=== PATIENT | female | born 1965 | race Caucasian/White ===

== ENCOUNTER → 2016-09-21 | Outpatient (CLI) | payer OTHER ==
[~2016-09-21] MED LIST: /ADVA50050 INH; /LORA10TA OR; /PRAV20TA PO; ABIL2TAB OR; ABIL5TAB; ABIL5TAB OR; ACET500C OR; ADDE20CA PO; ARTIDRO OP; ATEN25TA PO; ATOM40CA PO; AZEL0.05 TOP; BACL10TA2 OR; BENA25CA2 PO; BUPR15TA OR; CELE100C; CHLO500TA OR; DRIS1CAP PO; FLEXERIL; FLEXERIL OR; FLEXERIL PO; FLON0.054; IBUP200C PO; LIPI10TA; LIPI20TA PO; LORA0.5T PO; LYRI200C; LYRI75CA OR; LYRI75CA PO; MULTCAP PO; MUPI2OI TOP; NAPR500T OR; NEUR300C; NEUR300C OR; NICO21DI5 TD; OMEP40CA2 PO; PREG100CA; ROXI1TAB2 PO; TIZA4CAP3 PO; TIZA4TAB3 PO; TRAM50TA2; TRAM50TA2 OR; TRAZ100T; TRAZ100T2 PO; TRAZ50TA OR; TYLE167L PO; TYLE650T25 PO; TYLENOL #3 OR; ULTRTA OR; VICO5TAB OR; VOLT1GEL EX; VOLT1GEL TOP; WELL100T; WELLTAB PO; XARE20TA PO; [UNRECOGNIZED DRUG - CODE] PO; albuterol HFA INH; cymbalta PO; hydroxyzine OR; spiriva INH; vitamin d2 PO
--- NOTE | 2016-09-21 13:05 | REP ---
MRI BRAIN WITHOUT CONTRAST: HISTORY: Memory loss. COMPARISON: CT 12/09/2015. Several punctate areas of increased signal intensity on T2-weighted images are present in the subcortical white matter. This represents small vessel ischemic disease. There is no intraparenchymal hemorrhage, infarct, mass or midline shift. The ventricular system is normal in appearance. There is no extracerebral collection. The sinuses are clear. IMPRESSION: Minimal small vessel ischemic disease. Signed by Brian Campoverde MD 09/21/2016 01:11 P
== END ==
LOC: M RAD 10:56
PROVIDERS: ATTEND Physician Assistant Medical
DX: R41.3 Other amnesia (principal); I73.9 Peripheral vascular disease, unspecified

== ENCOUNTER → 2017-03-07 | Outpatient (REF) | payer OTHER ==
[~2017-03-07] MED LIST changes: -IBUP200C PO; +IBUP200C10 PO
== END ==
LOC: M LAB REF 16:57
PROVIDERS: ATTEND Physician Assistant Medical
DX: L30.9 Dermatitis, unspecified (principal)

== ENCOUNTER 2017-08-31 14:12 | Emergency (ER) | payer OTHER | END 2017-08-31 16:51 | disposition home or self-care (01) | LOC: M ED 14:12 | DX: L28.0 Lichen simplex chronicus (principal); M79.7 Fibromyalgia; R19.5 Other fecal abnormalities; I10 Essential (primary) hypertension; F41.9 Anxiety disorder, unspecified; F32.9 Major depressive disorder, single episode, unspecified; F43.10 Post-traumatic stress disorder, unspecified; Z85.528 Personal history of other malignant neoplasm of kidney; Z90.5 Acquired absence of kidney; F17.200 Nicotine dependence, unspecified, uncomplicated; Z79.899 Other long term (current) drug therapy | CPT/HCPCS: 99283 ==

== ENCOUNTER → 2017-09-06 | Outpatient (REF) | payer OTHER | LOC: M LAB REF 16:38 | DX: J02.8 Acute pharyngitis due to other specified organisms (principal) ==

== ENCOUNTER 2018-01-31 01:55 | Emergency (ER) | payer OTHER, MEDICAID, SELFPAY | END 2018-01-31 03:24 | disposition left against medical advice (07) | LOC: M ED 01:55 | DX: Z53.29 Procedure and treatment not carried out because of patient's decision for other reasons (principal) ==

== ENCOUNTER 2018-02-14 15:58 | Emergency (ER) | payer OTHER ==
[2018-02-14] MEDS: LIDOCAINE 2% MDV 20 ML VIAL SC (19:30)
[2018-02-14] MEDS: ADACEL/BOOSTRIX VACCINE (DIPHTH/PERTUSS/ACELL/TETANUS)0.5ML SYR (90715) IM (20:02)
[2018-02-14] MEDS: NORCO, ANEXSIA 5/325MG TABLET (HYDROcodone/ACETAMINOPHEN) PO (20:04)
== END 2018-02-14 20:36 | disposition home or self-care (01) ==
LOC: M ED 15:58
DX: S61.210A Laceration without foreign body of right index finger without damage to nail, initial encounter (principal); W25.XXXA Contact with sharp glass, initial encounter; Y92.098 Other place in other non-institutional residence as the place of occurrence of the external cause; H92.09 Otalgia, unspecified ear; I10 Essential (primary) hypertension; E78.5 Hyperlipidemia, unspecified; J45.909 Unspecified asthma, uncomplicated; F43.10 Post-traumatic stress disorder, unspecified; F98.8 Other specified behavioral and emotional disorders with onset usually occurring in childhood and adolescence; F60.3 Borderline personality disorder; Z90.5 Acquired absence of kidney; M79.7 Fibromyalgia; Z86.718 Personal history of other venous thrombosis and embolism; Z88.8 Allergy status to other drugs, medicaments and biological substances; F17.210 Nicotine dependence, cigarettes, uncomplicated; Z79.899 Other long term (current) drug therapy
CPT/HCPCS: 90715

== ENCOUNTER 2018-02-20 20:05 | Emergency (ER) | payer OTHER ==
[2018-02-20] MEDS: NORCO, ANEXSIA 5/325MG TABLET (HYDROcodone/ACETAMINOPHEN) PO (23:15)
== END 2018-02-21 00:14 | disposition home or self-care (01) ==
LOC: M ED 02-21 00:14
DX: Z48.02 Encounter for removal of sutures (principal); L08.9 Local infection of the skin and subcutaneous tissue, unspecified; B37.9 Candidiasis, unspecified; I10 Essential (primary) hypertension; M79.7 Fibromyalgia; Z79.899 Other long term (current) drug therapy; F17.210 Nicotine dependence, cigarettes, uncomplicated
CPT/HCPCS: 73140

== ENCOUNTER → 2018-08-08 | Outpatient (CLI) | payer OTHER ==
[~2018-08-08] MED LIST changes: +AMPH20CA PO; +CALC0.009; +CETI10TA; +DIFL150T PO; +DOXE10CA; +DOXE10CA PO; -IBUP200C10 PO; +IBUP200C25 PO; +KEFL500C17 PO; +LORA0.5T11; +NEUR300C PO; -NICO21DI5 TD; +NICO21DI6 TD; +NORCOTAB PO; +TIZA4CAP PO; -TIZA4CAP3 PO; +VENTAER
--- NOTE | 2018-08-08 18:27 | REP ---
LEFT BREAST ULTRASOUND: 08/08/2018. Clinical history: Proximally 1 week of left nipple discharge. Technologist stated that the patient informed her that it was greenish brown. Comparison: Diagnostic bilateral mammogram this date. Findings: Sonographic evaluation of the retroareolar zone of the left breast showed some dilated ducts in the retroareolar zone but none with any visible filling defects by sonography. No mass, architectural distortion, fluid collection or cyst visible. Impression: 1. Some mildly dilated ducts in the retroareolar zone of the left breast. No filling defects visible. This is best characterized as BIRADS/ACR category 2, benign ultrasound, no evidence of malignancy. None of the ducts demonstrate a filling defect. Please see mammogram report this date for final assessment and recommendation. Electronically Signed by Robin Alvarado MD 08/08/2018 07:59 P
--- NOTE | 2018-08-08 18:42 | REP ---
BILATERAL DIGITAL DIAGNOSTIC MAMMOGRAM: 08/08/2018. Comparison: Right breast ultrasound 08/08/2018, mammogram 06/15/2015. Clinical history: Scheduled as a screening examination, but the patient has had an greenish discharge for the past week from the left nipple. The for diagnostic mammogram and ultrasound. Findings: There is a moderate amount of residual fibroglandular tissue remaining which may reduce the sensitivity of mammography. Scattered lymph nodes are seen in the axilla. No dominant masses, suspicious cluster of microcalcifications or secondary signs of malignancy are seen. The 3-D total symphysis images show no additional findings. The left breast ultrasound showed some mildly dilated ducts in the retroareolar zone without filling defects in any of them. There is no cyst, solid mass or architectural distortion. Impression: 1. BIRADS 0: BI-RADS/ACR category 0 mammogram, Incomplete: Need additional imaging evaluation and/or prior mammograms for comparison. The patient describes a 1 week history of greenish discharge from the left nipple. Ultrasound identified a few dilated ducts but she did not have any discharge on compression with a mammogram. If discharge continues I would recommend she be considered for a ductogram of the left breast, but of course she has to be actively discharging for that examination to be accomplished. If the discharge was self-limited and has not recurred, and she can be followed with routine screening mammography as there was no identifiable significant finding on this study. Some mildly dilated ducts is a common normal finding in the retroareolar zone. This mammogram was interpreted with the aid of an FDA-approved computer-aided detection system. The patient states she has not had a clinical breast exam in over a year. The patient letter being requested is M0. Electronically Signed by Robin Alvarado MD 08/08/2018 08:00 P
== END ==
LOC: M RAD 13:05
PROVIDERS: ATTEND Family Medicine Addiction Medicine
DX: Z12.39 Encounter for other screening for malignant neoplasm of breast (principal); N64.52 Nipple discharge
CPT/HCPCS: 76642; 77066; G0279

== ENCOUNTER 2018-10-13 19:53 | Emergency (ER) | payer OTHER ==
[~2018-10-13] VITALS: Ht 154.9 cm; Wt 73.6 kg
[2018-10-13 19:53] VITALS: BP 140/86
[~2018-10-13 19:53] MED LIST changes: -/ADVA50050 INH; -/LORA10TA OR; -/PRAV20TA PO; +ADVA1AER2 INH; +HYDR-3715 PO; +LORA-385 OR; +MUPI1OIN2 TOP; -MUPI2OI TOP; -NORCOTAB PO; +PRAV1TAB39 PO
[2018-10-13] MEDS ORDERED: hydrOXYzine 25 MG TAB PO STA (20:10)
[2018-10-13] MEDS ORDERED: MUPIROCIN 2% OINT 22 GM TUBE TOP ONE (20:15)
[2018-10-13] MEDS ORDERED: MUPI2OI TOP (20:16)
[2018-10-13] MEDS ORDERED: CALADRYL EXT (20:16)
== END 2018-10-13 20:42 | disposition home or self-care (01) ==
LOC: M ED 19:53
DX: S60.460A Insect bite (nonvenomous) of right index finger, initial encounter (principal); W57.XXXA Bitten or stung by nonvenomous insect and other nonvenomous arthropods, initial encounter; Y92.9 Unspecified place or not applicable; B88.8 Other specified infestations; I10 Essential (primary) hypertension; M79.7 Fibromyalgia; Z86.718 Personal history of other venous thrombosis and embolism; Z79.899 Other long term (current) drug therapy

== ENCOUNTER 2019-10-01 04:38 | Emergency (ER) | payer OTHER ==
[~2019-10-01] VITALS: Ht 154.9 cm; Wt 71.4 kg
[~2019-10-01 04:38] MED LIST changes: +AMPH1CAP16 PO; -AMPH20CA PO; -ATOM40CA PO; +ATOM40CA16 PO; +CALADRYL EXT; -LORA0.5T11; +LORA0.5T5; +MUPI2OI TOP
[2019-10-01 04:39] VITALS: BP 145/87
[2019-10-01] MEDS ORDERED: AUGM500T34 PO (05:44)
[2019-10-01] MEDS ORDERED: AUGMENTIN 875 MG TAB PO ONE (05:45)
== END 2019-10-01 06:04 | disposition home or self-care (01) ==
LOC: M ED 04:38
DX: S80.862A Insect bite (nonvenomous), left lower leg, initial encounter (principal); B88.8 Other specified infestations; X58.XXXA Exposure to other specified factors, initial encounter; F60.3 Borderline personality disorder; Z86.718 Personal history of other venous thrombosis and embolism; F17.210 Nicotine dependence, cigarettes, uncomplicated; Z79.899 Other long term (current) drug therapy

== ENCOUNTER 2020-11-29 21:57 | Emergency (ER) | payer OTHER ==
[~2020-11-29] VITALS: Ht 154.9 cm; Wt 72.1 kg
[~2020-11-29 21:57] MED LIST changes: +AUGM500T34 PO
[2020-11-30] MEDS ORDERED: OFLOXACIN 0.3 % (OCUFLOX) OPTH SOL 5ML OS ONE (01:35)
[2020-11-30] MEDS ORDERED: OCUF0.25 OU (01:36)
[2020-11-30 01:52] VITALS: BP 122/84
[2020-11-30] MEDS ORDERED: IBUPROFEN 800 MG TAB PO ONE (01:55)
== END 2020-11-30 01:59 | disposition home or self-care (01) ==
LOC: M ED 21:57
DX: S05.02XA Injury of conjunctiva and corneal abrasion without foreign body, left eye, initial encounter (principal); W45.8XXA Other foreign body or object entering through skin, initial encounter; Y92.89 Other specified places as the place of occurrence of the external cause; Y93.89 Activity, other specified; Y99.8 Other external cause status; I10 Essential (primary) hypertension; J45.909 Unspecified asthma, uncomplicated; E78.5 Hyperlipidemia, unspecified; M79.7 Fibromyalgia; F43.10 Post-traumatic stress disorder, unspecified; F90.9 Attention-deficit hyperactivity disorder, unspecified type; F41.9 Anxiety disorder, unspecified; F33.9 Major depressive disorder, recurrent, unspecified; F60.3 Borderline personality disorder; F17.210 Nicotine dependence, cigarettes, uncomplicated

== ENCOUNTER 2022-09-09 16:34 | Inpatient (IN) | payer OTHER ==
[~2022-09-09] VITALS: Ht 154.9 cm; Wt 72.7 kg
[~2022-09-09 16:34] MED LIST changes: +OCUF0.25 OU
[2022-09-09] MEDS ORDERED: ONDANSETRON 4MG 2ML VIAL IV ONE (17:25)
[2022-09-09] MEDS ORDERED: NS 1,000 ML IV ONE (17:25)
[2022-09-09] MEDS ORDERED: KETOROLAC 30 MG/ML 1ML VIAL IV ONE (17:25)
[2022-09-09] MEDS ORDERED: VANCOMYCIN HCL 1,500 MG in IV FLUID PLACE HOLDER 1 EA IV ONE (17:25)
[2022-09-09] MEDS ORDERED: VANCOMYCIN HCL 750 MG, VIAL MATE ADAPTER 1 EACH in D5W 250 ML IV ONE ×2 (18:00→19:00)
[2022-09-09 18:17] LABS: BASO # 0.1 10^3/uL (0.0-0.2); BASO % 0.4 % (0.0-1.0); EOS # 0.1 10^3/uL (0.0-0.5); EOS % 0.7 % (0.0-3.0); HEMATOCRIT 39.7 % (36.0-47.0); HEMOGLOBIN 13.1 g/dl (12.0-15.5); LYMPH # 2.8 10^3/uL (1.5-5.0); LYMPH % 20.6 % (24.0-44.0); MEAN CORPUSCULAR HEMOGLOBIN 27.3 pg (27.0-33.0); MEAN CORPUSCULAR VOLUME 82.9 fl (80.0-96.0); MONO % 7.6 % (2.0-8.0); NEUTROPHILS # 9.4 10^3/uL (1.5-8.5); NEUTROPHILS % 69.8 % (36.0-66.0); RED BLOOD COUNT 4.79 10^6/uL (4.00-5.40); WHITE BLOOD COUNT 13.4 10^3/uL (4.0-10.0)
[2022-09-09 18:28] LABS: AMYLASE 54 U/L (30-118)
[2022-09-09 18:29] LABS: ALBUMIN 2.9 G/DL (3.2-5.2); ALKALINE PHOSPHATASE 121 U/L (46-116); ALT/SGPT 17 U/L (7.0-40); AST/SGOT 37 U/L (<34); BILIRUBIN,DIRECT < 0.1 MG/DL (<0.4); BILIRUBIN,TOTAL 0.2 MG/DL (0.3-1.2); BLOOD UREA NITROGEN 13 MG/DL (9-23); CARBON DIOXIDE LEVEL 24 MMOL/L (20-31); CHLORIDE LEVEL 101 MMOL/L (98-107); CK-MB VALUE MASS < 1.0 NG/ML (<3.6); CREATININE FOR GFR 0.67 MG/DL (0.55-1.30); GLOMERULAR FILTRATION RATE > 60.0 (>51); GLUCOSE, FASTING 92 MG/DL (60-100); POTASSIUM SERUM 3.8 MMOL/L (3.5-5.1); SODIUM LEVEL 135 MMOL/L (136-145); TOTAL PROTEIN 7.6 G/DL (5.7-8.2)
[2022-09-09 18:34] LABS: CPK CREATINE PHOSPHOKINASE 76 U/L (34-145); MB/CK RELATIVE INDEX 1.31 (< OR =4)
[2022-09-09 18:35] LABS: RSV AMPLIFICATION NEGATIVE (NEGATIVE)
[2022-09-09] MEDS ORDERED: PERCOCET 5MG/325MG TAB PO ONE (19:35)
[2022-09-09] MEDS ORDERED: HOME MED LIST COMPLETE! XX SCH (20:00)
[2022-09-09 22:50] VITALS: BP 132/71
[2022-09-09] MEDS ORDERED: MORPHINE 2 MG/ML 1ML VIAL IV ONE (23:40)
[2022-09-09] MEDS ORDERED: FLUCONAZOLE 100 MG TAB PO ONE (23:50)
[2022-09-10] MEDS ORDERED: UNRESOLVED CLARIFICATION ENTRY XX SCH (00:01)
[2022-09-10] MEDS: NS 1,000 ML IV SCH ×2 (00:35→11:11)
[2022-09-10 03:40] VITALS: BP 149/65
[2022-09-10] MEDS: VANCOMYCIN HCL 1,000 MG, VIAL MATE ADAPTER 1 EACH in NS 250 ML IV SCH ×2 (04:25→17:38)
[2022-09-10] MEDS: HEPARIN SOD (PORCINE) 5000UNITS/ML 1ML VIAL/SYRINGE SC SCH ×4 (05:55→21:30)
[2022-09-10 06:00] VITALS: BP 135/85
[2022-09-10 06:52] LABS: PLATELET COUNT, AUTOMATED 259 10^3/uL (150-450)
[2022-09-10 07:51] LABS: BASO % 0.3 % (0.0-1.0); EOS # 0.4 10^3/uL (0.0-0.5); EOS % 4.6 % (0.0-3.0); HEMATOCRIT 32.2 % (36.0-47.0); LYMPH # 2.5 10^3/uL (1.5-5.0); LYMPH % 29.1 % (24.0-44.0); MEAN CORPUSCULAR HEMOGLOBIN 28.3 pg (27.0-33.0); MEAN CORPUSCULAR HGB CONC 33.5 g/dl (32.0-36.5); MEAN CORPUSCULAR VOLUME 84.3 fl (80.0-96.0); MONO # 0.8 10^3/uL (0.0-0.8); MONO % 8.8 % (2.0-8.0); NEUTROPHILS # 4.9 10^3/uL (1.5-8.5); NEUTROPHILS % 56.4 % (36.0-66.0); RED BLOOD COUNT 3.82 10^6/uL (4.00-5.40); WHITE BLOOD COUNT 8.6 10^3/uL (4.0-10.0)
[2022-09-10 07:52] LABS: HEMOGLOBIN 10.8 g/dl (12.0-15.5)
[2022-09-10 07:56] LABS: HIV 1&2 SCREEN ATELLICA NEGATIVE (NEGATIVE)
[2022-09-10 09:20] LABS: BLOOD UREA NITROGEN 10 MG/DL (9-23); CALCIUM LEVEL 7.8 MG/DL (8.5-10.1); CARBON DIOXIDE LEVEL 22 MMOL/L (20-31); CHLORIDE LEVEL 107 MMOL/L (98-107); CREATININE FOR GFR 0.57 MG/DL (0.55-1.30); GLOMERULAR FILTRATION RATE > 60.0 (>51); GLUCOSE, FASTING 106 MG/DL (60-100); SODIUM LEVEL 138 MMOL/L (136-145)
[2022-09-10] MEDS ORDERED: ACETAMINOPHEN TAB 650MG DOSE (2X325MG) PO PRN (09:50)
[2022-09-10 10:33] LABS: MAGNESIUM LEVEL 1.7 MG/DL (1.8-2.4)
[2022-09-10] MEDS ORDERED: KCL 10MEQ/100ML SWI (KRUN) 10 MEQ in IV 1 EA IV SCH (11:00)
[2022-09-10] MEDS ORDERED: POTASSIUM CHLORIDE 10MEQ SR TABLET PO ONE ×2 (12:30→18:00)
[2022-09-10] MEDS: MAGNESIUM OXIDE 400MG TAB (MAG-OX) PO SCH ×2 (13:29→21:26)
[2022-09-10 14:00] VITALS: BP 135/83
[2022-09-10] MEDS: PERCOCET 5MG/325MG TAB PO PRN ×2 (17:37→21:25)
[2022-09-10] MEDS ORDERED: hydrOXYzine 50 MG TAB PO ONE (20:50)
[2022-09-10] MEDS ORDERED: GABAPENTIN 300 MG CAP PO ONE (20:50)
[2022-09-11] MEDS: VANCOMYCIN HCL 1,000 MG, VIAL MATE ADAPTER 1 EACH in NS 250 ML IV SCH (04:10)
[2022-09-11] MEDS: HEPARIN SOD (PORCINE) 5000UNITS/ML 1ML VIAL/SYRINGE SC SCH ×2 (04:10→14:00)
[2022-09-11 04:13] LABS: BASO % 0.4 % (0.0-1.0); EOS # 0.3 10^3/uL (0.0-0.5); EOS % 3.4 % (0.0-3.0); HEMATOCRIT 32.5 % (36.0-47.0); HEMOGLOBIN 10.5 g/dl (12.0-15.5); LYMPH # 2.8 10^3/uL (1.5-5.0); LYMPH % 36.5 % (24.0-44.0); MEAN CORPUSCULAR HEMOGLOBIN 27.6 pg (27.0-33.0); MEAN CORPUSCULAR HGB CONC 32.3 g/dl (32.0-36.5); MEAN CORPUSCULAR VOLUME 85.5 fl (80.0-96.0); MONO # 0.6 10^3/uL (0.0-0.8); MONO % 7.6 % (2.0-8.0); NEUTROPHILS # 3.9 10^3/uL (1.5-8.5); NEUTROPHILS % 51.1 % (36.0-66.0); PLATELET COUNT, AUTOMATED 288 10^3/uL (150-450); WHITE BLOOD COUNT 7.6 10^3/uL (4.0-10.0)
[2022-09-11 04:39] LABS: VANCOMYCIN LEVEL TROUGH 8.3 UG/ML (10.0-20.0)
[2022-09-11 04:52] LABS: BLOOD UREA NITROGEN 7 MG/DL (9-23); CALCIUM LEVEL 8.1 MG/DL (8.5-10.1); CARBON DIOXIDE LEVEL 24 MMOL/L (20-31); CHLORIDE LEVEL 111 MMOL/L (98-107); CREATININE FOR GFR 0.52 MG/DL (0.55-1.30); GLOMERULAR FILTRATION RATE > 60.0 (>51); GLUCOSE, FASTING 80 MG/DL (60-100); MAGNESIUM LEVEL 1.7 MG/DL (1.8-2.4); POTASSIUM SERUM 4.2 MMOL/L (3.5-5.1); SODIUM LEVEL 142 MMOL/L (136-145)
[2022-09-11 06:13] VITALS: BP 141/79
[2022-09-11] MEDS ORDERED: FLUBLOK(EGG FREE)(QUAD)INFLUENZA VACC 0.5ML SYRINGE 18YRS & OLDER IM.IMMUN ONE (09:00)
[2022-09-11] MEDS: MAGNESIUM OXIDE 400MG TAB (MAG-OX) PO SCH (09:28)
[2022-09-11] MEDS: PERCOCET 5MG/325MG TAB PO PRN (09:28)
[2022-09-11] MEDS ORDERED: DOXY-444 PO (10:05)
[2022-09-11] MEDS ORDERED: WELLTAB38 PO (10:05)
[2022-09-11] MEDS ORDERED: MAGN400T2 PO (10:05)
[2022-09-11] MEDS ORDERED: FLUC150T9 PO (10:35)
[2022-09-11] MEDS ORDERED: PERC5TAB12 PO (10:37)
[2022-09-11] MEDS ORDERED: PROB250C PO (11:03)
[2022-09-11] MEDS ORDERED: DOXYCYCLINE HYCLATE 100MG TABLET PO ONE (12:00)
[2022-09-11] MEDS ORDERED: VANCOMYCIN HCL 1,000 MG, VIAL MATE ADAPTER 1 EACH in NS 250 ML IV SCH (12:00)
== END 2022-09-11 15:20 | disposition home or self-care (01) | DRG 720 ==
LOC: M ED 16:34 → M ED INP 19:50 → M MS5PR 22:45
PROVIDERS: ADMIT Internal Medicine; ATTEND Internal Medicine
DX: A41.9 Sepsis, unspecified organism (principal); I10 Essential (primary) hypertension; L03.116 Cellulitis of left lower limb; F17.210 Nicotine dependence, cigarettes, uncomplicated; B36.0 Pityriasis versicolor; F32.A Depression, unspecified; R19.7 Diarrhea, unspecified; M79.7 Fibromyalgia; F43.10 Post-traumatic stress disorder, unspecified; M48.00 Spinal stenosis, site unspecified; E87.6 Hypokalemia; Z85.528 Personal history of other malignant neoplasm of kidney; Z85.41 Personal history of malignant neoplasm of cervix uteri

== ENCOUNTER 2022-09-27 00:06 | Inpatient (IN) | payer OTHER ==
[~2022-09-27] VITALS: Ht 154.9 cm; Wt 73.6 kg
[~2022-09-27 00:06] MED LIST changes: +DOXY-444 PO; +FLUC150T9 PO; +MAGN400T2 PO; +PERC5TAB12 PO; +PROB250C PO; +WELLTAB38 PO
[2022-09-27 01:37] LABS: BASO # 0.1 10^3/uL (0.0-0.2); BASO % 1.5 % (0.0-1.0); EOS # 0.2 10^3/uL (0.0-0.5); HEMATOCRIT 33.3 % (36.0-47.0); HEMOGLOBIN 10.6 g/dl (12.0-15.5); LYMPH # 3.4 10^3/uL (1.5-5.0); LYMPH % 56.9 % (24.0-44.0); MEAN CORPUSCULAR HEMOGLOBIN 27.5 pg (27.0-33.0); MEAN CORPUSCULAR HGB CONC 31.8 g/dl (32.0-36.5); MEAN CORPUSCULAR VOLUME 86.3 fl (80.0-96.0); MONO # 0.5 10^3/uL (0.0-0.8); MONO % 8.8 % (2.0-8.0); NEUTROPHILS # 1.7 10^3/uL (1.5-8.5); NEUTROPHILS % 28.5 % (36.0-66.0); PLATELET COUNT, AUTOMATED 472 10^3/uL (150-450); RED BLOOD COUNT 3.86 10^6/uL (4.00-5.40)
[2022-09-27 01:58] LABS: BLOOD UREA NITROGEN 12 MG/DL (9-23); CARBON DIOXIDE LEVEL 28 MMOL/L (20-31); CHLORIDE LEVEL 105 MMOL/L (98-107); CREATININE FOR GFR 0.65 MG/DL (0.55-1.30); GLOMERULAR FILTRATION RATE > 60.0 (>51); GLUCOSE, FASTING 112 MG/DL (60-100); POTASSIUM SERUM 4.1 MMOL/L (3.5-5.1); SODIUM LEVEL 138 MMOL/L (136-145)
[2022-09-27 02:07] LABS: RSV AMPLIFICATION NEGATIVE (NEGATIVE)
[2022-09-27] MEDS ORDERED: WELLTAB38 PO (04:17)
[2022-09-27 04:28] LABS: VENOUS HCO3 27.5 MMOL/L (23.0-27.0); VENOUS O2 SATURATION 95.7 % (60.0-80.0); VENOUS PARTIAL PRESSURE CO2 46.3 mmHg (38.0-50.0); VENOUS PARTIAL PRESSURE O2 82.2 mmHg (30.0-50.0); VENOUS PH 7.391 UNITS (7.330-7.430); VENOUS STANDARD HCO3 26.2 MMOL/L; VENOUS TOTAL CO2 28.9 MMOL/L (24.0-28.0)
[2022-09-27] MEDS ORDERED: VANCOMYCIN HCL 1,000 MG, VIAL MATE ADAPTER 1 EACH in NS 250 ML IV ONE (05:00)
[2022-09-27] MEDS ORDERED: ACETAMINOPHEN TAB 650MG DOSE (2X325MG) PO PRN (05:00)
[2022-09-27 05:01] LABS: BARBITURATES URINE NEGATIVE (NEGATIVE); BENZODIAZEPINES URINE NEGATIVE (NEGATIVE); METHADONE URINE NEGATIVE (NEGATIVE); OPIATES URINE NEGATIVE (NEGATIVE); PHENCYCLIDINE URINE NEGATIVE (NEGATIVE)
[2022-09-27 05:03] LABS: AMPHETAMINES LEVEL URINE POSITIVE (NEGATIVE); CANNABINOIDS URINE POSITIVE (NEGATIVE); COCAINE METABOLITE URINE POSITIVE (NEGATIVE)
[2022-09-27] MEDS ORDERED: ACET650T61 PO (05:12)
[2022-09-27] MEDS ORDERED: HOME MED LIST COMPLETE! XX SCH (05:20)
[2022-09-27 05:35] VITALS: BP 133/77
[2022-09-27] MEDS ORDERED: VANCOMYCIN HCL 500 MG in D5W MINI-BAG PLUS 100 ML IV ONE (07:00)
[2022-09-27 07:30] LABS: ANTI-STREPTOLYSIN O QUANT 1346.7 IU/ML (<195)
[2022-09-27] MEDS: ENOXAPARIN 40MG/0.4ML SYRINGE (J1650 PER 10MG) SC SCH (08:02)
[2022-09-27] MEDS: amLODIPine 5 MG TAB PO SCH (11:16)
[2022-09-27] MEDS: ACETAMINOPHEN TAB 650MG DOSE (2X325MG) PO PRN (13:23)
[2022-09-27] MEDS: buPROPion **XL** TABLET 150MG (WELLBUTRIN XL) PO SCH (13:39)
[2022-09-27 14:00] VITALS: BP 137/81
[2022-09-27] MEDS: VANCOMYCIN HCL 1,000 MG, VIAL MATE ADAPTER 1 EACH in NS 250 ML IV SCH (19:47)
[2022-09-27] MEDS: ACETAMINOPH W/CODEINE #3 TAB UD PO PRN (19:47)
[2022-09-27 21:15] VITALS: BP 141/80
[2022-09-28] MEDS: ACETAMINOPH W/CODEINE #3 TAB UD PO PRN ×2 (02:57→13:11)
[2022-09-28 06:14] VITALS: BP 166/92
[2022-09-28 07:25] VITALS: BP 156/85
[2022-09-28 07:48] LABS: BASO # 0.1 10^3/uL (0.0-0.2); BASO % 1.4 % (0.0-1.0); EOS # 0.3 10^3/uL (0.0-0.5); EOS % 4.6 % (0.0-3.0); HEMATOCRIT 37.3 % (36.0-47.0); HEMOGLOBIN 11.6 g/dl (12.0-15.5); LYMPH # 3.1 10^3/uL (1.5-5.0); LYMPH % 48.8 % (24.0-44.0); MEAN CORPUSCULAR HEMOGLOBIN 27.1 pg (27.0-33.0); MEAN CORPUSCULAR HGB CONC 31.1 g/dl (32.0-36.5); MEAN CORPUSCULAR VOLUME 87.1 fl (80.0-96.0); MONO # 0.5 10^3/uL (0.0-0.8); MONO % 7.8 % (2.0-8.0); NEUTROPHILS # 2.3 10^3/uL (1.5-8.5); NEUTROPHILS % 37.2 % (36.0-66.0); PLATELET COUNT, AUTOMATED 455 10^3/uL (150-450); RED BLOOD COUNT 4.28 10^6/uL (4.00-5.40); WHITE BLOOD COUNT 6.3 10^3/uL (4.0-10.0)
[2022-09-28 08:03] LABS: BLOOD UREA NITROGEN 8 MG/DL (9-23); CALCIUM LEVEL 9.2 MG/DL (8.5-10.1); CARBON DIOXIDE LEVEL 27 MMOL/L (20-31); CHLORIDE LEVEL 108 MMOL/L (98-107); CREATININE FOR GFR 0.63 MG/DL (0.55-1.30); GLOMERULAR FILTRATION RATE > 60.0 (>51); GLUCOSE, FASTING 89 MG/DL (60-100); MAGNESIUM LEVEL 1.8 MG/DL (1.8-2.4); POTASSIUM SERUM 4.1 MMOL/L (3.5-5.1); SODIUM LEVEL 140 MMOL/L (136-145)
[2022-09-28] MEDS: ACETAMINOPHEN TAB 650MG DOSE (2X325MG) PO PRN ×2 (08:03→08:06)
[2022-09-28] MEDS: buPROPion **XL** TABLET 150MG (WELLBUTRIN XL) PO SCH (08:04)
[2022-09-28 08:05] VITALS: BP 156/85
[2022-09-28] MEDS: amLODIPine 5 MG TAB PO SCH (08:05)
[2022-09-28] MEDS: ENOXAPARIN 40MG/0.4ML SYRINGE (J1650 PER 10MG) SC SCH (08:07)
[2022-09-28] MEDS: VANCOMYCIN HCL 1,000 MG, VIAL MATE ADAPTER 1 EACH in NS 250 ML IV SCH (08:30)
[2022-09-28] MEDS ORDERED: DOXY-444 PO (13:18)
[2022-09-28] MEDS ORDERED: PROB250C PO (13:18)
[2022-09-28] MEDS ORDERED: AMLO1TAB24 PO (13:18)
[2022-09-28] MEDS ORDERED: ACET-716 PO (13:20)
[2022-09-28 13:24] VITALS: BP 145/84
[2022-09-28 14:00] VITALS: BP 144/84
== END 2022-09-28 16:00 | disposition home health service (06) | DRG 383 ==
LOC: M ED 00:06 → M ED INP 04:01 → ENRESERV 04:43 → M MS5PR 05:35
PROVIDERS: ADMIT Internal Medicine; ATTEND Internal Medicine
DX: L03.116 Cellulitis of left lower limb (principal); M19.90 Unspecified osteoarthritis, unspecified site; I10 Essential (primary) hypertension; M79.7 Fibromyalgia; F43.10 Post-traumatic stress disorder, unspecified; G89.29 Other chronic pain; E78.5 Hyperlipidemia, unspecified; M54.9 Dorsalgia, unspecified; R53.83 Other fatigue; J45.909 Unspecified asthma, uncomplicated; F41.9 Anxiety disorder, unspecified; F32.A Depression, unspecified; B95.62 Methicillin resistant Staphylococcus aureus infection as the cause of diseases classified elsewhere; F17.200 Nicotine dependence, unspecified, uncomplicated; Z85.41 Personal history of malignant neoplasm of cervix uteri; Z79.899 Other long term (current) drug therapy; Z86.711 Personal history of pulmonary embolism; Z86.718 Personal history of other venous thrombosis and embolism

== ENCOUNTER 2023-01-11 19:10 | Emergency (ER) | payer OTHER ==
[~2023-01-11] VITALS: Ht 154.9 cm; Wt 71.4 kg
[~2023-01-11 19:10] MED LIST changes: +ACET-716 PO; +ACET650T61 PO; +AMLO1TAB24 PO
[2023-01-11 20:24] LABS: BASO # 0.1 10^3/uL (0.0-0.2); BASO % 0.8 % (0.0-1.0); EOS # 0.3 10^3/uL (0.0-0.5); EOS % 3.1 % (0.0-3.0); HEMATOCRIT 44.3 % (36.0-47.0); HEMOGLOBIN 14.2 g/dl (12.0-15.5); LYMPH # 2.9 10^3/uL (1.5-5.0); MEAN CORPUSCULAR HEMOGLOBIN 27.4 pg (27.0-33.0); MEAN CORPUSCULAR HGB CONC 32.1 g/dl (32.0-36.5); MEAN CORPUSCULAR VOLUME 85.4 fl (80.0-96.0); MONO # 0.5 10^3/uL (0.0-0.8); MONO % 5.8 % (2.0-8.0); NEUTROPHILS # 5.5 10^3/uL (1.5-8.5); NEUTROPHILS % 59.1 % (36.0-66.0); PLATELET COUNT, AUTOMATED 404 10^3/uL (150-450); RED BLOOD COUNT 5.19 10^6/uL (4.00-5.40); WHITE BLOOD COUNT 9.3 10^3/uL (4.0-10.0)
[2023-01-11 20:35] LABS: CK-MB VALUE MASS 1.8 NG/ML (<3.6); LIPASE 53 U/L (12-53)
[2023-01-11 20:36] LABS: ETHYL ALCOHOL (ETHANOL) 0.004 % (0.000-0.010)
[2023-01-11 20:37] LABS: ALBUMIN 4.1 G/DL (3.2-5.2); ALKALINE PHOSPHATASE 110 U/L (46-116); ALT/SGPT 16 U/L (7.0-40); AMYLASE 68 U/L (30-118); AST/SGOT 12 U/L (<34); BILIRUBIN,DIRECT < 0.1 MG/DL (<0.4); BILIRUBIN,TOTAL 0.2 MG/DL (0.3-1.2); BLOOD UREA NITROGEN 18 MG/DL (9-23); CALCIUM LEVEL 10.2 MG/DL (8.5-10.1); CARBON DIOXIDE LEVEL 28 MMOL/L (20-31); CHLORIDE LEVEL 107 MMOL/L (98-107); CPK CREATINE PHOSPHOKINASE 131 U/L (34-145); CREATININE FOR GFR 0.72 MG/DL (0.55-1.30); GLOMERULAR FILTRATION RATE > 60.0 (>51); GLUCOSE, FASTING 80 MG/DL (60-100); MB/CK RELATIVE INDEX 1.37 (< OR =4); POTASSIUM SERUM 3.9 MMOL/L (3.5-5.1); SODIUM LEVEL 145 MMOL/L (136-145); TOTAL PROTEIN 8.3 G/DL (5.7-8.2)
[2023-01-11 20:48] LABS: INR 0.97; PARTIAL THROMBOPLASTIN TIME 25.6 SECONDS (24.8-34.2); PROTHROMBIN TIME 12.6 SECONDS (12.5-14.5); RSV AMPLIFICATION NEGATIVE (NEGATIVE)
[2023-01-12 02:21] VITALS: BP 133/84; TEMP 96.7
[2023-01-12] MEDS ORDERED: MORPHINE 4 MG/ML 1ML VIAL IV ONE (02:25)
[2023-01-12 02:28] VITALS: O2SAT 97
== END 2023-01-12 02:35 | disposition short-term general hospital (02) ==
LOC: M ED 19:10
DX: S32.020A Wedge compression fracture of second lumbar vertebra, initial encounter for closed fracture (principal); S00.03XA Contusion of scalp, initial encounter; S40.011A Contusion of right shoulder, initial encounter; S80.01XA Contusion of right knee, initial encounter; V18.4XXA Pedal cycle driver injured in noncollision transport accident in traffic accident, initial encounter; Y92.410 Unspecified street and highway as the place of occurrence of the external cause; Y93.55 Activity, bike riding; R00.1 Bradycardia, unspecified; I10 Essential (primary) hypertension; F32.A Depression, unspecified; M79.7 Fibromyalgia; Z86.718 Personal history of other venous thrombosis and embolism; Z86.711 Personal history of pulmonary embolism; F17.200 Nicotine dependence, unspecified, uncomplicated; Z79.899 Other long term (current) drug therapy

== ENCOUNTER 2024-02-15 23:06 | Emergency (ER) | payer OTHER ==
[~2024-02-15] VITALS: Ht 154.9 cm; Wt 167.0 kg
[~2024-02-15 23:06] MED LIST changes: +CALC0.0017; -CALC0.009; +DOXY-440 PO; -DOXY-444 PO
[2024-02-16 04:17] VITALS: BP 143/91; TEMP 97.4; O2SAT 96
== END 2024-02-16 04:41 | disposition home or self-care (01) ==
LOC: M ED 23:06
DX: M54.50 Low back pain, unspecified (principal); Y04.8XXA Assault by other bodily force, initial encounter; I10 Essential (primary) hypertension; F43.10 Post-traumatic stress disorder, unspecified; M79.7 Fibromyalgia; Z79.1 Long term (current) use of non-steroidal anti-inflammatories (NSAID); Z79.899 Other long term (current) drug therapy